=== PATIENT | female | born 1945 | race Caucasian/White ===

== ENCOUNTER → 2019-11-10 | Day surgery (SDC) | payer OTHER, BC ==
--- NOTE | 2019-11-11 16:48 | PATH ---
Cytology Non-Gynecological Report Patient Name: RADHA WELLS [facility]. Rec. #: [id number] /Age/Gender: 1945 (Age: 74) / F Account: [id number] Location: [facility] Taken: 11/10/2019 Received: 11/10/2019 Reported: 11/11/2019 Physicians: Alexis Mendez M.D. Specimen(s) Received BREAST, RIGHT, 8-9:30, FINE NEEDLE ASPIRATION Clinical History Right breast cyst Final Diagnosis BREAST, RIGHT, 89:30, FINE NEEDLE ASPIRATION: SATISFACTORY FOR EVALUATION. NO MALIGNANT CELLS IDENTIFIED. CYSTIC BREAST LESION WITH APOCRINE METAPLASIA. APOCRINE METAPLASTIC CELLS IN A BACKGROUND OF PROTEINACEOUS DEBRIS. Electronically Signed Vonnie Galindo M.D. Gross Description Approximately 30 cc of a patel cloudy fluid received fixed in 50% alcohol. One cytofunnel prepared and Pap stained. One cellblock prepared.
== END | disposition home or self-care (01) ==
LOC: JRADUS-SUR 09:45
PROVIDERS: ATTEND Surgery Surgical Oncology
PROC: 0H9T3ZX Drainage of Right Breast, Percutaneous Approach, Diagnostic (ICD-10-PCS; principal; 2019-11-10)
DX: N60.01 Solitary cyst of right breast (principal)
CPT/HCPCS: 76942-TC; 88173; 88305-TC